=== PATIENT | female | born 1950 ===

== ENCOUNTER 2018-07-03 06:36 | Day surgery (SDC) | payer OTHER ==
[2018-07-02 10:18] VITALS: BMI 27.7
[2018-07-03] MEDS ORDERED: Lactated Ringer's 500 ML IV ONE (08:41)
--- NOTE | 2018-07-03 08:41 | CP.SDSHP ---
Same Day Surgery H & P - History Proposed Procedure: egd Pre-Op Diagnosis: epigastric pain. heartburn refractory to Rx - Previous Medical/Surgical History Cardiac: Hypertension, Other (hyperlipidemia, ) Pulmonary: Asthma Neuro: Backaches Misc: Other (RA, Gerd, H pylori gastritis, NAFLD) Previous Surgical History: . Gallbladder - Allergies Allergies: Allergies No Known Allergies Allergy (Verified 07/03/18 07:08) - Physical Exam Vital Signs: Vital Signs 07/03/18 07:14 Temperature 98.4 F Pulse Rate 73 Respiratory 19 Rate Blood Pressure 126/68 O2 Sat by Pulse 97 Oximetry Mental Status: Alert & Oriented x3 Neuro: WNL Heart: WNL Lungs: WNL GI: WNL - Impression Impression: epigastric pain'. heartburn refractory to Rx Pt. Evaluated Today:Candidate for Anesthesia & Procedure: Yes - Date & Time Date: 07/03/18 Time: 08:42 Short Stay Discharge - Short Stay Discharge Admitting Diagnosis/Reason for Visit: EPIGASTRIC PAIN / HEARTBURN / GERD Disposition: HOME/ ROUTINE
[2018-07-03] MEDS ORDERED: Propofol 10 mg/ml Inj (20 ML) ONE (08:46)
[2018-07-03] MEDS ORDERED: Lidocaine Hydrochloride 5 ML INJ ONE (09:08)
[2018-07-03 09:29] VITALS: RESP 16
[2018-07-03 10:43] VITALS: BP 133/71; PULSE 71; TEMP 97.9; O2SAT 97
== END 2018-07-03 10:37 | disposition home or self-care (01) ==
LOC: C.ENDO 06:36
PROVIDERS: ATTEND Internal Medicine Gastroenterology
DX: K21.0 Gastro-esophageal reflux disease with esophagitis (principal); D13.0 Benign neoplasm of esophagus; K29.50 Unspecified chronic gastritis without bleeding; K44.9 Diaphragmatic hernia without obstruction or gangrene; I10 Essential (primary) hypertension; J45.909 Unspecified asthma, uncomplicated; E78.49 Other hyperlipidemia
CPT/HCPCS: 43239; 88305; 88312; 88342; J2704; J7120